=== PATIENT | female | born 1965 | race Two or more races ===

== ENCOUNTER 2024-08-21 19:09 | Emergency (ER) | payer OTHER ==
[~2024-08-21] VITALS: Ht 149.9 cm; Wt 63.6 kg
[2024-08-21 19:25] VITALS: BP 159/88; PULSE 98; RESP 18; TEMP 99.6; O2SAT 98
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
[2024-08-21] MEDS: HYDROcodone-ACET 5/325MG TAB PO ONE (21:13)
[2024-08-21] MEDS: DexAMETHasone SOD PHOS 10MG/1ML VIAL INJ IM ONE (21:14)
[2024-08-21] MEDS: KETOROLAC TROMETH 60MG/2ML VIAL IM ONE (21:14)
[2024-08-21] MEDS ORDERED: TIZA-142 PO (21:39)
[2024-08-21] MEDS ORDERED: METH4PAK PO (21:39)
--- NOTE | 2024-08-21 21:39 | ED.PDOC ---
Back pain HPI HPI Comments PT WAS IN [facility] 12 2024, HAS HAD INCREASING LEFT LOWER BACK PAIN, R ADIATING TO HER LEFT FOOT. WAS SEEN THURSDAY, RECEIVED DECADRON WITH LIDOCAINE, REPORTS NO RELIEF. Denies numbness, weakness, loss of bowel or bladder control, saddle anesthesia or footdrop Chief Complaint: Lower Extremity Time Seen by MD: 19:30 Reviewed Notes: Nurses Notes, Medications, Allergies Allergies: Coded Allergies: NO KNOWN ALLERGIES (Unverified , 08/21/24) Home Meds Active Scripts Tizanidine Hydrochloride (Tizanidine Hcl) 4 Mg Tab, 4 MG PO BID for 5 Days, #10 TAB Prov:SWEETIE ALFARO EQUAL OPPORTUNITY ASSISTANT 08/21/24 Methylprednisolone (Medrol Dosepak) 4 Mg Claudio, 4 MG PO UD, #21 TAB UAD Prov:DOMINICSWEETIE EQUAL OPPORTUNITY ASSISTANT 08/21/24 Information Source: Patient Mode of Arrival: Ambulatory Past Medical History PAST MEDICAL HISTORY: Denies Surgical History: Denies all surgeries 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 Family History Family History: Unknown Social History Smoker: Non-Smoker Alcohol: Denies ETOH Use Drugs: Denies Drug Use Constitutional: denies: chills, diaphoresis, fatigue, fever, malaise, sweats, weakness, others EENTM: denies: blurred vision, double vision, ear bleeding, ear discharge, ear drainage, ear pain, ear ringing, eye pain, eye redness, hearing loss, mouth pain, mouth swelling, nasal discharge, nose bleeding, nose congestion, nose pain, photophobia, tearing, throat pain, throat swelling, voice changes, others Respiratory: denies: cough, hemoptysis, orthopnea, SOB at rest, shortness of breath, SOB with excertion, stridor, wheezing, others Cardiovascular: denies: chest pain, dizzy spells, diaphoresis, Dyspnea on exertion, edema, irregular heart beat, left arm pain, lightheadedness, palpitations, PND, syncope, others Gastrointestinal: denies: abdomen distended, abdominal pain, blood streaked bowels, constipated, diarrhea, dysphagia, difficulty swallowing, hematemesis, melena, nausea, poor appetite, poor fluid intake, rectal bleeding, rectal pain, vomiting, others Genitourinary: denies: abnormal vagina bleeding, burning, dyspareunia, dysuria, flank pain, frequency, hematuria, incontinence, pain, , vagina discharge, urgency, others Neurological: denies: dizziness, fainting, headache, left sided numbness, left sided weakness, numbness, paresthesia, pre-existing deficit, right sided numbness, right sided weakness, seizure, speech problems, tingling, tremors, weakness, others Musculoskeletal: reports: back pain; denies: gout, joint pain, joint swelling, muscle pain, muscle stiffness, neck pain, others Integumetry: denies: bruises, change in color, change in hair/nails, dryness, laceration, lesions, lumps, rash, wounds, others Allergic/Immunocompromised: denies: Difficulty Healing, Frequent Infections, Hives, Itching, others Hematologic/Lymphatic: denies: anemia, blood clots, easy bleeding, easy bruising, swollen glands, others Endocrine: denies: excessive hunger, excessive sweating, excessive thirst, excessive urination, flushing, intolerance to cold, intolerance to heat, unexplained weight gain, unexplained weight loss, others Psychiatric: denies: anxiety, bipolar disorder, depression, hopeless, panic disorder, schizophrenia, sleepless, suicidal, others Physical Exam General Appearance: No Apparent Distress, Normal HEENT: Normal ENT Inspection, Pharynx Normal, TMs Normal Neck: Full Range of Motion, Non-Tender Respiratory: Chest Non-Tender, Lungs Clear, No Respiratory Distress, Normal Breath Sounds Cardiovascular: No Edema, No JVD, No Murmur, No Gallop, Normal Peripheral Pulses, Regular Rate/Rhythm Breast Exam: Deferred Gastrointestinal: No Organomegaly, Non Tender, No Pulsatile Mass, Normal Bowel Sounds, Soft Genitalia: Deferred Pelvic: Deferred Rectal: Deferred Extremities: Normal capillary refill, Normal inspection, Normal range of motion, Non-tender, No pedal edema Musculoskeletal : Location: Left Extremity Location: Back (MODERATE TENDERNESS PALPATED OVER L3-L5 LUMBAR SPINE WITHOUT CREPITUS OR STEP-OFFS NOTED PARASPINAL SPASMS LEFT SIDE NEGATIVE STRAIGHT LEG RAISE BILATERAL NO NOTED EXTERNAL TRAUMA SENSORY MOTION AND STRENGTH INTACT BILATERAL LOWER EXTREMITIES POSITIVE PEDAL PULSES) Apperance: Normal Neurologic: Alert, marketing sales supervisor II-XII nml as Tested, No Motor Deficits, Normal Affect, Normal Mood, No Sensory Deficits Cerebellar Function: Normal Reflexes: Normal Skin: Dry, Normal Color, Warm Lymphatic: No Adenopathy Was a procedure done? Was a procedure done?: No Back Pain Differential Dx Differential Diagnosis: Fracture, Musculoskeletal Pain, Strain X-Ray, Labs, Meds, VS Vital Signs Date Time Temp Pulse Resp B/P (MAP) Pulse Ox O2 Delivery O2 Flow Rate FiO2 08/21/24 19:25 Room Air 08/21/24 19:25 99.6 98 18 159/88 (111) 98 99.6 08/21/24 19:25 99.6 98 18 159/88 (111) 98 99.6 Current Medications Medications (Trade) Dose Ordered Sig/Nomi Route Start Time Stop Time Status Last Admin Ketorolac Tromethamine (Toradol Injection) 60 mg ONCE ONCE IM 08/21/24 20:45 08/21/24 20:46 DC 08/21/24 21:14 Dexamethasone Sodium Phosphate (Decadron Injection) 10 mg ONCE ONCE IM 08/21/24 20:45 08/21/24 20:46 DC 08/21/24 21:14 Acetaminophen/ Hydrocodone Bitart ([place] 5/325MG Tab) 1 tab ONCE ONCE PO 08/21/24 20:45 08/21/24 20:46 DC 08/21/24 21:13 X-Ray, Labs, Meds, VS Comment CT LUMBAR SPINE SHOWS NO ACUTE FRACTURES OR OSSEOUS LESIONS. SHOWS CHRONIC SPONDYLOSIS WITH STENOSIS AT THE L3/L4 LEVEL WITH OSTEOPHYTES WITH MODERATE NEURAL FORAMINAL NARROWING. RESULTS DISCUSSED WITH PATIENT PATIENT STATES SHE WAS SCHEDULED FOR NEXT THURSDAY FOR A SERIES OF EPIDURAL INJECTIONS WITH PAIN MANAGEMENT. PATIENT WAS GIVEN TORADOL 60 MG IM, DECADRON 10 MG IM, AND NORCO 5 MG P.O.. REPORTS IMPROVEMENT IN SYMPTOMS AND FUNCTION IN HIS REQUESTING DISCHARGE AT THIS TIME. SCRIPT MUSCLE RELAXER AND MEDROL DOSEPAK. ADVISED TO TAKE MEDICATIONS PRESCRIBED SIDE EFFECTS DISCUSSED. ADVISED NOT TO TAKE THE MEDROL DOSEPAK BECAUSE SHE WAS SCHEDULED FOR STEROID INJECTIONS ON THURSDAY ADVISED ONLY TAKE RADICULAR PAIN IS MODERATE TO SEVERE. ADVISED ON ER RETURN PRECAUTIONS SUCH SADDLE ANESTHESIA, FOOT DROP, LOSS OF BOWEL OR BLADDER CONTROL OR ANY OTHER CONCERNING SYMPTOMS. PATIENT INDICATES UNDERSTANDING AND AGREES WITH DISCHARGE PLAN OF CARE Time of 1ST Reevaluation: 21:38 Reevaluation 1ST: Improved Patient Education/Counseling: Diagnosis, Treatment, Prognosis, Need For Follow Up Family Education/Counseling: No Family Present Departure 1 Departure Time of Disposition: 21:38 Impression: Primary Impression: Lumbar back sprain Qualified Codes: S33.5XXA - Sprain of ligaments of lumbar spine, initial encounter Additional Impression: Lumbar radiculopathy, acute Disposition: HOME / SELF CARE / HOMELESS Condition: Stable e-Prescriptions Tizanidine Hydrochloride (Tizanidine Hcl) 4 Mg Tab 4 MG PO BID for 5 Days, #10 TAB Prov: SWEETIE ALFARO 08/21/24 Methylprednisolone (Medrol Dosepak) 4 Mg Claudio 4 MG PO UD, #21 TAB UAD Prov: SWEETIE ALFARO 08/21/24 Discharged With: Spouse Critical Care Note Critical Care Time?: No Stability Stability form required: No SWEETIE ALFARO Aug 21, 2024 21:39
== END 2024-08-21 21:53 | disposition home or self-care (01) ==
LOC: ER 19:18
DX: S33.5XXA Sprain of ligaments of lumbar spine, initial encounter (principal); M54.16 Radiculopathy, lumbar region; Z79.899 Other long term (current) drug therapy; X58.XXXA Exposure to other specified factors, initial encounter; Y93.89 Activity, other specified; Y92.89 Other specified places as the place of occurrence of the external cause; Y99.8 Other external cause status
CPT/HCPCS: 72131; 96372; 99285; J1100; J1885